=== PATIENT | female | born 1950 | race African-American/Black ===

== ENCOUNTER 2018-01-25 12:35 | Inpatient (IN) | payer OTHER ==
[~2018-01-25] VITALS: Ht 175.3 cm; Wt 68.5 kg
[~2018-01-25 12:35] MED LIST: GABAPENTIN600 MG PO; HYZAAR 50-12.1 UDTAB PO; KEPPRA500 MG/5 M IV; LEVSIN0.125 MG PO; MAALOX525 MG/15 PO; NORFLEX 30MG30 MG/ML IM; PLAVIX75 MG; PROTONIX40 MG PO; RELAGESIC TABLE1 TAB PO; SURFAK240 MG NGT; ULTRACET PO; ULTRAM50 MG PO; ZANTAC300 MG PO; ZOFRAN4 MG PO
[2018-01-25] MEDS ORDERED: ZOCOR20 MG (12:45)
[2018-01-25] MEDS ORDERED: KEPPRA500 MG (12:45)
== END 2018-01-29 20:15 | disposition home or self-care (01) | DRG 392 ==
LOC: ER 12:35 → SEC-K 01-26 07:42 → SURH 01-26 07:42
DX: K57.32 Diverticulitis of large intestine without perforation or abscess without bleeding (principal); K29.60 Other gastritis without bleeding; E86.0 Dehydration

== ENCOUNTER 2018-07-06 12:15 | Emergency (ER) | payer OTHER ==
[~2018-07-06] VITALS: Ht 175.3 cm; Wt 68.9 kg
[~2018-07-06 12:15] MED LIST changes: +KEPPRA500 MG; +ZOCOR20 MG
== END 2018-07-06 13:00 | disposition home or self-care (01) ==
LOC: ER 12:15
DX: R00.2 Palpitations (principal); R07.89 Other chest pain; F41.8 Other specified anxiety disorders

== ENCOUNTER 2018-12-23 09:07 | Emergency (ER) | payer OTHER ==
[~2018-12-23] VITALS: Ht 172.7 cm; Wt 72.6 kg
[2018-12-23] MEDS ORDERED: INTESTINEX680 M1 PO (14:27)
== END 2018-12-23 14:43 | disposition home or self-care (01) ==
LOC: ER 09:07
DX: K57.30 Diverticulosis of large intestine without perforation or abscess without bleeding (principal); R10.32 Left lower quadrant pain

== ENCOUNTER 2019-05-06 07:06 | Outpatient (CLI) | payer OTHER ==
[~2019-05-06 07:06] MED LIST changes: +INTESTINEX680 M1 PO
== END 2019-05-06 07:13 | disposition home or self-care (01) ==
LOC: LAB 07:06
DX: E03.8 Other specified hypothyroidism (principal); E06.3 Autoimmune thyroiditis; R97.0 Elevated carcinoembryonic antigen [CEA]; Z80.3 Family history of malignant neoplasm of breast; D51.3 Other dietary vitamin B12 deficiency anemia; D51.1 Vitamin B12 deficiency anemia due to selective vitamin B12 malabsorption with proteinuria; I10 Essential (primary) hypertension; K29.70 Gastritis, unspecified, without bleeding; I63.89 Other cerebral infarction; E78.2 Mixed hyperlipidemia; D50.8 Other iron deficiency anemias; D51.8 Other vitamin B12 deficiency anemias; D51.0 Vitamin B12 deficiency anemia due to intrinsic factor deficiency

== ENCOUNTER 2019-05-06 08:10 | Outpatient (CLI) | payer OTHER | END 2019-05-06 10:44 | disposition home or self-care (01) | LOC: SONOGRAMA 08:10 → MAMO-SONO 08:45 → SONOGRAMA 10:44 | DX: E03.8 Other specified hypothyroidism (principal); E06.3 Autoimmune thyroiditis; E78.2 Mixed hyperlipidemia; I67.89 Other cerebrovascular disease; Z80.3 Family history of malignant neoplasm of breast; D51.3 Other dietary vitamin B12 deficiency anemia; D51.1 Vitamin B12 deficiency anemia due to selective vitamin B12 malabsorption with proteinuria; I10 Essential (primary) hypertension; K29.70 Gastritis, unspecified, without bleeding; I63.89 Other cerebral infarction ==

== ENCOUNTER 2019-07-02 08:23 | Outpatient (CLI) | payer OTHER | END 2019-07-02 08:24 | disposition home or self-care (01) | LOC: SONOGRAMA 08:23 | DX: E04.1 Nontoxic single thyroid nodule (principal) ==

== ENCOUNTER 2019-07-17 08:01 | Outpatient (CLI) | payer OTHER | END 2019-07-17 08:16 | disposition home or self-care (01) | LOC: LAB 08:01 | DX: E78.2 Mixed hyperlipidemia (principal); Z80.3 Family history of malignant neoplasm of breast; D51.3 Other dietary vitamin B12 deficiency anemia; D51.1 Vitamin B12 deficiency anemia due to selective vitamin B12 malabsorption with proteinuria; E06.3 Autoimmune thyroiditis; I10 Essential (primary) hypertension; K29.70 Gastritis, unspecified, without bleeding; R97.0 Elevated carcinoembryonic antigen [CEA] ==

== ENCOUNTER 2019-10-08 08:59 | Outpatient (CLI) | payer OTHER | END 2019-10-08 10:58 | disposition home or self-care (01) | LOC: LAB 08:59 | DX: I25.10 Atherosclerotic heart disease of native coronary artery without angina pectoris (principal); I10 Essential (primary) hypertension; Z60.2 Problems related to living alone; E16.2 Hypoglycemia, unspecified; H26.8 Other specified cataract; J32.8 Other chronic sinusitis; H40.89 Other specified glaucoma; K29.70 Gastritis, unspecified, without bleeding; K57.30 Diverticulosis of large intestine without perforation or abscess without bleeding; D13.1 Benign neoplasm of stomach; R94.5 Abnormal results of liver function studies; R31.29 Other microscopic hematuria; N20.2 Calculus of kidney with calculus of ureter; R80.8 Other proteinuria; D72.818 Other decreased white blood cell count; M51.36 Other intervertebral disc degeneration, lumbar region; M62.838 Other muscle spasm; M85.88 Other specified disorders of bone density and structure, other site; G43.909 Migraine, unspecified, not intractable, without status migrainosus; L27.8 Dermatitis due to other substances taken internally; G40.109 Localization-related (focal) (partial) symptomatic epilepsy and epileptic syndromes with simple partial seizures, not intractable, without status epilepticus; N60.29 Fibroadenosis of unspecified breast; D51.8 Other vitamin B12 deficiency anemias; D50.8 Other iron deficiency anemias; Z68.24 Body mass index [BMI] 24.0-24.9, adult; Z87.19 Personal history of other diseases of the digestive system; Z86.010 Personal history of colon polyps; Z86.73 Personal history of transient ischemic attack (TIA), and cerebral infarction without residual deficits; N39.0 Urinary tract infection, site not specified; D51.3 Other dietary vitamin B12 deficiency anemia; D51.1 Vitamin B12 deficiency anemia due to selective vitamin B12 malabsorption with proteinuria; E06.3 Autoimmune thyroiditis; I00-I99 Diseases of the circulatory system; E78.2 Mixed hyperlipidemia; R97.0 Elevated carcinoembryonic antigen [CEA]; E55.9 Vitamin D deficiency, unspecified; K90.89 Other intestinal malabsorption ==

== ENCOUNTER 2019-11-29 15:08 | Emergency (ER) | payer OTHER ==
[~2019-11-29] VITALS: Ht 175.3 cm; Wt 80.7 kg
== END 2019-11-29 21:04 | disposition home or self-care (01) ==
LOC: ER 15:08
DX: K52.89 Other specified noninfective gastroenteritis and colitis (principal)

== ENCOUNTER 2020-05-18 09:45 | Emergency (ER) | payer OTHER ==
[~2020-05-18] VITALS: Ht 175.3 cm; Wt 68.9 kg
== END 2020-05-18 11:32 | disposition home or self-care (01) ==
LOC: ER 09:45
DX: H92.03 Otalgia, bilateral (principal); H61.23 Impacted cerumen, bilateral

== ENCOUNTER 2020-05-19 15:12 | Outpatient (CLI) | payer OTHER | END 2020-05-19 16:00 | disposition home or self-care (01) | LOC: OFIC 805 15:12 | PROVIDERS: ATTEND Otolaryngology | DX: H92.03 Otalgia, bilateral (principal); H90.3 Sensorineural hearing loss, bilateral; S00.451A Superficial foreign body of right ear, initial encounter; H61.23 Impacted cerumen, bilateral ==

== ENCOUNTER 2020-06-16 09:46 | Outpatient (CLI) | payer OTHER | END 2020-06-16 10:30 | disposition home or self-care (01) | LOC: OFIC 805 09:46 | PROVIDERS: ATTEND Otolaryngology | DX: H90.3 Sensorineural hearing loss, bilateral (principal); H92.03 Otalgia, bilateral ==

== ENCOUNTER 2020-09-01 09:55 | Outpatient (CLI) | payer OTHER | END 2020-09-01 11:00 | disposition home or self-care (01) | LOC: OFIC 805 09:55 | PROVIDERS: ATTEND Otolaryngology | DX: H90.3 Sensorineural hearing loss, bilateral (principal); L30.8 Other specified dermatitis; H69.83 Other specified disorders of Eustachian tube, bilateral ==

== ENCOUNTER 2020-09-09 10:29 | Emergency (ER) | payer OTHER ==
[~2020-09-09] VITALS: Ht 175.3 cm; Wt 70.3 kg
[2020-09-09] MEDS ORDERED: NORFLEX100MG PO (12:23)
== END 2020-09-09 12:39 | disposition home or self-care (01) ==
LOC: ER 10:29
DX: M25.551 Pain in right hip (principal); M54.5 Low back pain

== ENCOUNTER 2020-10-24 08:17 | Outpatient (CLI) | payer OTHER ==
[~2020-10-24 08:17] MED LIST changes: +NORFLEX100MG PO
== END 2020-10-24 12:48 | disposition home or self-care (01) ==
LOC: OFIC 805 08:17
PROVIDERS: ATTEND Otolaryngology
DX: L30.8 Other specified dermatitis (principal); H69.83 Other specified disorders of Eustachian tube, bilateral

== ENCOUNTER 2021-01-21 10:42 | Emergency (ER) | payer OTHER ==
[~2021-01-21] VITALS: Ht 175.3 cm; Wt 71.2 kg
[2021-01-21] MEDS ORDERED: TUMS300 MG (11:06)
== END 2021-01-21 16:54 | disposition home or self-care (01) ==
LOC: ER 10:42
DX: R53.81 Other malaise (principal); R53.1 Weakness; T50.995A Adverse effect of other drugs, medicaments and biological substances, initial encounter; Y92.89 Other specified places as the place of occurrence of the external cause

== ENCOUNTER 2021-04-25 12:31 | Outpatient (CLI) | payer OTHER ==
[~2021-04-25 12:31] MED LIST changes: +TUMS300 MG
== END 2021-04-25 15:00 | disposition home or self-care (01) ==
LOC: LAB 12:31
PROVIDERS: ATTEND Internal Medicine Hematology & Oncology
DX: I10 Essential (primary) hypertension (principal)

== ENCOUNTER → 2021-05-10 | Outpatient (CLI) | payer OTHER ==
[~2021-05-10] MED LIST changes: +CANDESARTAN-HC1 EACH PO; +FLONASE16 GM NS; +KEPPRA500 MG PO; +LEVOFLOXACIN750 MG PO; +SIMVASTATIN20 MG PO
== END | disposition home or self-care (01) ==
LOC: TOM 07:09
PROVIDERS: ATTEND Internal Medicine Hematology & Oncology
DX: K90.89 Other intestinal malabsorption (principal); D72.818 Other decreased white blood cell count; Z80.3 Family history of malignant neoplasm of breast; D51.1 Vitamin B12 deficiency anemia due to selective vitamin B12 malabsorption with proteinuria; D51.3 Other dietary vitamin B12 deficiency anemia; M81.0 Age-related osteoporosis without current pathological fracture; E06.3 Autoimmune thyroiditis; I10 Essential (primary) hypertension; K29.70 Gastritis, unspecified, without bleeding; I63.89 Other cerebral infarction; I67.89 Other cerebrovascular disease; E78.2 Mixed hyperlipidemia; E55.9 Vitamin D deficiency, unspecified; M54.5 Low back pain; R97.0 Elevated carcinoembryonic antigen [CEA]
CPT/HCPCS: 71260; 74177; Q9965

== ENCOUNTER 2021-06-10 10:11 | Emergency (ER) | payer OTHER ==
[~2021-06-10] VITALS: Ht 175.3 cm; Wt 69.4 kg
[~2021-06-10 10:11] MED LIST changes: -CANDESARTAN-HC1 EACH PO; -FLONASE16 GM NS; -KEPPRA500 MG PO; -LEVOFLOXACIN750 MG PO; -SIMVASTATIN20 MG PO
[2021-06-10] MEDS ORDERED: LEVOFLOXACIN750 MG PO (10:21)
[2021-06-10] MEDS ORDERED: FLONASE16 GM NS (10:21)
[2021-06-10] MEDS ORDERED: KEPPRA500 MG PO (10:21)
[2021-06-10] MEDS ORDERED: CANDESARTAN-HC1 EACH PO (10:21)
[2021-06-10] MEDS ORDERED: SIMVASTATIN20 MG PO (10:22)
== END 2021-06-10 17:34 | disposition home or self-care (01) ==
LOC: ER 10:11
DX: I87.2 Venous insufficiency (chronic) (peripheral) (principal); R60.0 Localized edema; M79.604 Pain in right leg

== ENCOUNTER 2021-06-24 13:15 | Emergency (ER) | payer OTHER ==
[~2021-06-24] VITALS: Ht 175.3 cm; Wt 69.4 kg
[~2021-06-24 13:15] MED LIST changes: +CANDESARTAN-HC1 EACH PO; +FLONASE16 GM NS; +KEPPRA500 MG PO; +LEVOFLOXACIN750 MG PO; +SIMVASTATIN20 MG PO
== END 2021-06-24 16:43 | disposition home or self-care (01) ==
LOC: ER 13:15
DX: R42 Dizziness and giddiness (principal)

== ENCOUNTER 2022-03-19 13:46 | Emergency (ER) | payer OTHER ==
[~2022-03-19] VITALS: Ht 175.3 cm; Wt 70.8 kg
== END 2022-03-19 18:14 | disposition home or self-care (01) ==
LOC: ER 13:46
DX: M25.571 Pain in right ankle and joints of right foot (principal); M79.671 Pain in right foot; Z88.0 Allergy status to penicillin; Z91.013 Allergy to seafood; Z91.018 Allergy to other foods

== ENCOUNTER → 2022-03-23 08:00 | Outpatient (CLI) | payer OTHER | END | disposition home or self-care (01) | LOC: NUCLEAR 08:00 | PROVIDERS: ATTEND General Practice | DX: I87.2 Venous insufficiency (chronic) (peripheral) (principal); R22.43 Localized swelling, mass and lump, lower limb, bilateral; Z88.0 Allergy status to penicillin; Z91.013 Allergy to seafood; Z88.6 Allergy status to analgesic agent; Z88.8 Allergy status to other drugs, medicaments and biological substances ==

== ENCOUNTER 2022-06-12 10:28 | Outpatient (CLI) | payer OTHER | END 2022-06-12 10:29 | disposition home or self-care (01) | LOC: RAD 10:28 | PROVIDERS: ATTEND Internal Medicine | DX: M54.6 Pain in thoracic spine (principal); M85.89 Other specified disorders of bone density and structure, multiple sites; M25.511 Pain in right shoulder; R05.9 Cough, unspecified; I10 Essential (primary) hypertension ==

== ENCOUNTER 2022-09-17 09:47 | Emergency (ER) | payer OTHER ==
[~2022-09-17] VITALS: Ht 175.3 cm; Wt 68.5 kg
[2022-09-17] MEDS ORDERED: GABAPENTIN600 MG PO (11:00)
== END 2022-09-17 14:16 | disposition home or self-care (01) ==
LOC: ER 09:47
DX: R42 Dizziness and giddiness (principal); Z88.0 Allergy status to penicillin; I99.8 Other disorder of circulatory system; Z91.013 Allergy to seafood; Z88.6 Allergy status to analgesic agent

== ENCOUNTER 2024-06-11 14:04 | Emergency (ER) | payer OTHER ==
[~2024-06-11] VITALS: Ht 175.3 cm; Wt 71.2 kg
[2024-06-11] MEDS ORDERED: BUTALB/ACETAMINOPHEN/CAFFEINE 1 TAB TABLET PO ONE (14:15)
[2024-06-11 14:41] LABS: HEMATOCRIT 37.3 % (36.0-45.00); HEMOGLOBIN 12.3 g/dL (12.0-15.00); MEAN CELL VOLUME 88.9 fL (80.00-100.00); MEAN CORPUSCULAR HEMOGLOBIN 29.3 pg (27.00-32.0); PLATELET COUNT 222 K/uL (150-450); RED BLOOD COUNT 4.19 M/uL (4.00-6.00); RED CELL DISTRIBUTION WIDTH 12.7 % (11.5-14.5)
== END 2024-06-11 15:14 | disposition home or self-care (01) ==
LOC: ER 14:04
PROVIDERS: General Practice
DX: R51.9 Headache, unspecified (principal); Z20.822 Contact with and (suspected) exposure to COVID-19; I10 Essential (primary) hypertension; Z88.0 Allergy status to penicillin; Z88.5 Allergy status to narcotic agent; Z91.013 Allergy to seafood

== ENCOUNTER 2024-06-14 11:52 | Emergency (ER) | payer OTHER ==
[~2024-06-14] VITALS: Ht 175.3 cm; Wt 71.2 kg
[2024-06-14] MEDS ORDERED: COZAAR25 MG PO (12:26)
[2024-06-14] MEDS ORDERED: ORPHENADRINE CITRATE 30 MG/ML AMPUL IV STA (13:44)
[2024-06-14] MEDS ORDERED: DEXAMETHASONE SODIUM PHOSPHATE 4 MG/ML VIAL IV SCH (13:45)
[2024-06-14 14:03] LABS: HEMATOCRIT 37.7 % (36.0-45.00); HEMOGLOBIN 12.4 g/dL (12.0-15.00); MEAN CELL VOLUME 88.8 fL (80.00-100.00); MEAN CORPUSCULAR HEMOGLOBIN 29.1 pg (27.00-32.0); MEAN CORPUSCULAR HGB CONC 32.8 g/dl (32.0-36.0); PLATELET COUNT 211 K/uL (150-450); RED BLOOD COUNT 4.25 M/uL (4.00-6.00); RED CELL DISTRIBUTION WIDTH 12.8 % (11.5-14.5)
[2024-06-14 14:35] LABS: ALBUMIN 3.5 gm/dL (3.4-5.0); BILIRUBIN TOTAL 0.51 mg/dL (0.3-1.2); CALCIUM 9.2 mg/dL (8.5-10.1); CREATININE SERUM 0.82 mg/dL (0.55-1.02); GFR 67.78; POTASSIUM 3.81 mEq/L (3.5-5.1); TOTAL PROTEIN 7.5 gm/dL (6.4-8.2)
[2024-06-14 14:52] LABS: URINE APPEARANCE Clear; URINE BILIRRUBIN Negative (NEGATIVE); URINE BLOOD Negative; URINE COLOR Yellow; URINE GLUCOSE Negative (NEGATIVE); URINE LEUKOCYTE Negative; URINE NITRATE Negative; URINE PROTEIN Negative (NEGATIVE); URINE UROBILINOGEN 0.2 E.U./dl
[2024-06-14 14:53] LABS: URINE BACTERIA 49.1 uL (0.0-1933); URINE RBC 9.3 uL (0.0-20.8)
[2024-06-14 14:58] LABS: URINE WBC 0.4 uL (0.0-23.2)
== END 2024-06-14 17:23 | disposition home or self-care (01) ==
LOC: ER 11:54
PROVIDERS: General Practice
DX: R51.9 Headache, unspecified (principal); I50.9 Heart failure, unspecified; Z88.8 Allergy status to other drugs, medicaments and biological substances; Z88.0 Allergy status to penicillin; Z91.013 Allergy to seafood
CPT/HCPCS: 36415; 72040; 96365; 96366; 99283; J1100; J2360

== ENCOUNTER 2024-07-01 03:11 | Emergency (ER) | payer OTHER ==
[~2024-07-01] VITALS: Ht 175.3 cm; Wt 71.2 kg
[~2024-07-01 03:11] MED LIST changes: +COZAAR25 MG PO
[2024-07-01] MEDS ORDERED: ACETAMINOPHEN 500 MG GEL..CAP PO ONE (04:14)
[2024-07-01] MEDS ORDERED: BUTALB/ACETAMINOPHEN/CAFFEINE 1 TAB TABLET PO STA (05:28)
[2024-07-01] MEDS ORDERED: BUTALB/ACETAMINOPHEN/CAFFEINE 1 TAB TABLET PO ONE (05:31)
[2024-07-01] MEDS ORDERED: ESGIC 50-325-41 EACH PO (08:06)
== END 2024-07-01 08:19 ==
LOC: ER 03:11
DX: R51.9 Headache, unspecified (principal); I10 Essential (primary) hypertension; Z88.0 Allergy status to penicillin; Z88.5 Allergy status to narcotic agent; Z91.013 Allergy to seafood

== ENCOUNTER 2025-02-11 08:20 | Emergency (ER) | payer OTHER ==
[~2025-02-11] VITALS: Ht 175.3 cm; Wt 70.8 kg
[~2025-02-11 08:20] MED LIST changes: +ESGIC 50-325-41 EACH PO
[2025-02-11] MEDS ORDERED: CARAFATE1 GM (08:45)
[2025-02-11] MEDS ORDERED: MECLIZINE HCL 25 MG TABLET PO ONE (09:15)
[2025-02-11 09:56] LABS: HEMATOCRIT 38.4 % (36.0-45.00); HEMOGLOBIN 12.8 g/dL (12.0-15.00); MEAN CELL VOLUME 86.8 fL (80.00-100.00); MEAN CORPUSCULAR HEMOGLOBIN 28.9 pg (27.00-32.0); MEAN CORPUSCULAR HGB CONC 33.3 g/dl (32.0-36.0); PLATELET COUNT 221 K/uL (150-450); RED BLOOD COUNT 4.43 M/uL (4.00-6.00); RED CELL DISTRIBUTION WIDTH 13.1 % (11.5-14.5)
[2025-02-11 10:16] LABS: CALCIUM 9.4 mg/dL (8.5-10.1); CREATININE SERUM 0.88 mg/dL (0.55-1.02); GFR 62.47; POTASSIUM 3.52 mEq/L (3.5-5.1)
[2025-02-11 10:33] LABS: URINE APPEARANCE Clear; URINE BILIRRUBIN Negative (NEGATIVE); URINE BLOOD Negative; URINE COLOR Yellow; URINE GLUCOSE Negative (NEGATIVE); URINE KETONE Negative (NEGATIVE); URINE LEUKOCYTE Negative; URINE NITRATE Negative; URINE PROTEIN Negative (NEGATIVE); URINE UROBILINOGEN 0.2 E.U./dl
[2025-02-11 10:37] LABS: URINE RBC 2.7 uL (0.0-20.8)
== END 2025-02-11 11:25 | disposition home or self-care (01) ==
LOC: ER 08:22
PROVIDERS: Emergency Medicine
DX: R42 Dizziness and giddiness (principal); Z91.013 Allergy to seafood; Z88.6 Allergy status to analgesic agent; Z88.0 Allergy status to penicillin; I10 Essential (primary) hypertension; E05.80 Other thyrotoxicosis without thyrotoxic crisis or storm

== ENCOUNTER 2025-04-14 09:32 | Outpatient (CLI) | payer OTHER ==
[~2025-04-14 09:32] MED LIST changes: +CARAFATE1 GM
== END 2025-04-14 09:36 | disposition home or self-care (01) ==
LOC: TOM 09:32
PROVIDERS: ATTEND Psychiatry & Neurology Neurology
DX: M54.50 Low back pain, unspecified (principal)

== ENCOUNTER 2025-05-04 02:29 | Emergency (ER) | payer OTHER ==
[~2025-05-04] VITALS: Ht 175.3 cm; Wt 71.2 kg
[2025-05-04] MEDS ORDERED: HYDROCODONE/CHLORPHEN P-STIREX 5 ML ML PO STA (03:09)
[2025-05-04] MEDS ORDERED: MECLIZINE HCL 25 MG TABLET PO STA (03:09)
[2025-05-04] MEDS ORDERED: MECLIZINE HCL 25 MG TABLET PO ONE (03:28)
[2025-05-04 03:53] LABS: BASO % 0.2 % (0.1-1.2); EOS # 0.04 (0.04-0.54); EOS % 0.8 % (0.7-7.0); HEMATOCRIT 33.8 % (34.1-44.9); HEMOGLOBIN 10.9 g/dL (11.2-15.7); LYMPH # 0.34 (1.18-3.74); MEAN CORPUSCULAR HEMOGLOBIN 27.3 pg (25.6-32.2); MONO # 0.44 (0.24-0.82); MONO % 9.1 % (4.7-12.5); NEUT % 82.7 % (34.0-71.1); PLATELET COUNT 206 K/uL (163-369); RED BLOOD COUNT 3.99 M/uL (3.93-5.22); RED CELL DISTRIBUTION WIDTH 13.9 % (11.6-14.4)
[2025-05-04 04:05] LABS: CALCIUM 8.8 mg/dL (8.5-10.1); CREATININE SERUM 0.74 mg/dL (0.55-1.02); GFR 76.1; POTASSIUM 3.21 mEq/L (3.5-5.1)
[2025-05-04 04:43] LABS: COVID-19 AG NEGATIVE (NEGATIVE); INFLUENZA A AG NEGATIVE (NEGATIVE); INFLUENZA B AG NEGATIVE (NEGATIVE)
[2025-05-04] MEDS ORDERED: ACETAMINOPHEN 500 MG GEL..CAP PO ONE (05:24)
[2025-05-04] MEDS ORDERED: ACETAMINOPHEN 325 MG TABLET PO ONE (05:30)
== END 2025-05-04 05:36 | disposition home or self-care (01) ==
LOC: ER 02:29
DX: H81.10 Benign paroxysmal vertigo, unspecified ear (principal); Z91.013 Allergy to seafood; Z88.6 Allergy status to analgesic agent; Z88.0 Allergy status to penicillin; Z88.1 Allergy status to other antibiotic agents; Z20.822 Contact with and (suspected) exposure to COVID-19